=== PATIENT | male | born 1950 | race Caucasian/White ===

== ENCOUNTER 2021-08-01 11:15 | Inpatient (IN) | payer OTHER ==
[~2021-08-01] VITALS: Ht 165.1 cm; Wt 76.2 kg
[2021-08-01] MEDS ORDERED: COZAAR50 MG PO (17:18)
[2021-08-07] MEDS ORDERED: PERCOCET 5-3251 EACH PO (18:15)
[2021-08-07] MEDS ORDERED: ELIQUIS2.5 MG PO (18:15)
[2021-08-07] MEDS ORDERED: DUI500 PO (18:15)
[2021-08-08] MEDS ORDERED: PERCOCET 5-3251 EACH PO (07:24)
== END 2021-08-08 16:52 | disposition home or self-care (01) | DRG 470 ==
LOC: O/R 08-05 07:00 → SURH 08-05 07:00
PROVIDERS: ADMIT Orthopaedic Surgery; ATTEND Orthopaedic Surgery
PROC: 0SRC0J9 Replacement of Right Knee Joint with Synthetic Substitute, Cemented, Open Approach (ICD-10-PCS; principal; 2021-08-05 07:00)
DX: M17.11 Unilateral primary osteoarthritis, right knee (principal); D62 Acute posthemorrhagic anemia; M22.11 Recurrent subluxation of patella, right knee; I10 Essential (primary) hypertension; Z20.822 Contact with and (suspected) exposure to COVID-19

== ENCOUNTER 2021-08-21 20:08 | Emergency (ER) | payer OTHER ==
[~2021-08-21] VITALS: Ht 165.1 cm; Wt 69.4 kg
[~2021-08-21 20:08] MED LIST: COZAAR50 MG PO; DUI500 PO; ELIQUIS2.5 MG PO; PERCOCET 5-3251 EACH PO
[2021-08-21] MEDS ORDERED: LEVOFLOXACIN750 MG PO (20:33)
[2021-08-21] MEDS ORDERED: GABAPENTIN300 M2 PO (20:34)
[2021-08-21] MEDS ORDERED: SENNA LAXATIVE8.6 MG PO (20:34)
[2021-08-22] MEDS ORDERED: BACTRIM DS TAB1 EACH PO (07:42)
[2021-08-22] MEDS ORDERED: PERCOCET 5-3251 EACH PO (07:42)
[2021-08-22] MEDS ORDERED: LEVOFLOXACIN750 MG PO (07:42)
== END 2021-08-22 08:00 | disposition home or self-care (01) ==
LOC: ER 20:08
DX: L03.115 Cellulitis of right lower limb (principal); Z96.651 Presence of right artificial knee joint; M17.11 Unilateral primary osteoarthritis, right knee; I10 Essential (primary) hypertension

== ENCOUNTER 2024-11-24 08:13 | Inpatient (IN) | payer OTHER ==
[~2024-11-24] VITALS: Ht 165.1 cm; Wt 74.8 kg
[~2024-11-24 08:13] MED LIST changes: +BACTRIM DS TAB1 EACH PO; +GABAPENTIN300 M2 PO; +LEVOFLOXACIN750 MG PO; +SENNA LAXATIVE8.6 MG PO
[2024-11-24 08:49] LABS: BASO % 1.2 % (0.1-1.2); EOS # 0.19 (0.04-0.54); EOS % 3.3 % (0.7-7.0); LYMPH # 1.49 (1.18-3.74); LYMPH % 26.1 % (19.3-53.1); MEAN PLATELET VOLUME 8.60 fl (9.4-12.4); MONO # 0.50 (0.24-0.82); MONO % 8.8 % (4.7-12.5); NEUT # 3.43 (1.56-6.13); NEUT % 60.2 % (34.0-71.1); RED CELL DISTRIBUTION WIDTH 12.4 % (11.6-14.4)
[2024-11-24 08:53] LABS: URINE APPEARANCE Clear; URINE BILIRRUBIN Negative (NEGATIVE); URINE BLOOD Negative; URINE COLOR Yellow; URINE GLUCOSE Negative (NEGATIVE); URINE KETONE Negative (NEGATIVE); URINE LEUKOCYTE Negative; URINE NITRATE Negative; URINE PROTEIN Negative (NEGATIVE); URINE UROBILINOGEN 0.2 E.U./dl
[2024-11-24 08:58] LABS: URINE BACTERIA 0 uL (0.0-1933); URINE CAST 0.00 uL (0.0-1.40); URINE EPITHELIAL CELLS 0.3 uL (0.0-38.8); URINE RBC 1.6 uL (0.0-20.8); URINE WBC 0.6 uL (0.0-23.2)
[2024-11-24 09:07] LABS: INR 0.97
[2024-11-24 09:20] LABS: ALT/SGPT 34.0 U/L (12-78); AST/SGOT 19.0 U/L (15-37); BILIRUBIN TOTAL 0.43 mg/dL (0.3-1.2); BUN CREA RATIO 20.0 (7.0-25.0); CREATININE SERUM 0.79 mg/dL (0.70-1.30); GFR 96.69; GLOBULINA 3.4 G/DL (2.4-3.5); GLUCOSE FASTING 116.0 mg/dL (65-100); OSMOLALITY SERUM 283.0 MOSM/KG (275-295)
[2024-11-24 09:24] VITALS: BP 150/80
[2024-11-24 09:28] LABS: COVID-19 AG NEGATIVE (NEGATIVE)
[2024-11-24] MEDS ORDERED: ROSUVASTATIN CA10 MG (09:34)
[2024-11-24 11:13] LABS: RH POSITIVE
[2024-11-28] MEDS ORDERED: VANCOMYCIN HCL 1,000 MG VIAL IV ONE (07:30)
[2024-11-28] MEDS ORDERED: CEFAZOLIN SODIUM 1,000 MG VIAL IV ONE (07:30)
[2024-11-28] MEDS ORDERED: TRANEXAMIC ACID 100MG/1ML (1000MG) AMPUL IV ONE (07:30)
[2024-11-28] MEDS ORDERED: ISOPROPYL ALCOHOL 30 ML OUNCE TOP ONE (07:45)
[2024-11-28] MEDS ORDERED: BUPIVACAINE HCL/PF 0.25% 30ML VIAL InF ONE (07:45)
[2024-11-28] MEDS ORDERED: MORPHINE SULFATE 4 MG/ML VIAL IV ONE (07:45)
[2024-11-28] MEDS ORDERED: LIDOCAINE HCL 1%/EPINEPHRINE 20ML VIAL IJ ONE (07:45)
[2024-11-28] MEDS ORDERED: KETOROLAC TROMETHAMINE 60 MG VIAL IM ONE (07:45)
[2024-11-28] MEDS ORDERED: MORPHINE SULFATE 4 MG/ML CARTRIDGE IV PRN (08:45)
[2024-11-28] MEDS ORDERED: SODIUM CHLORIDE 0.45 % 1,000 ML IV SCH (08:45)
[2024-11-28] MEDS ORDERED: OxyCODONE HCL 5 MG TABLET (ROXICODONE) PO PRN (08:45)
[2024-11-28] MEDS ORDERED: ONDANSETRON HCL 2 MG/ML VIAL IV PRN (08:45)
[2024-11-28] MEDS ORDERED: CELECOXIB 200 MG CAPSULE PO SCH (09:00)
[2024-11-28] MEDS ORDERED: GABAPENTIN 300 MG CAPSULE PO SCH (09:00)
[2024-11-28] MEDS ORDERED: CEFAZOLIN SODIUM 1,000 MG VIAL IV SCH (09:00)
[2024-11-28] MEDS ORDERED: ACETAMINOPHEN 500 MG GEL..CAP PO SCH (12:00)
[2024-11-28 17:12] VITALS: BP 151/88; O2SAT 98
[2024-11-28] MEDS ORDERED: ENALAPRILAT DIHYDRATE 1.25 MG/ML VIAL IV PRN (21:45)
[2024-11-28 23:00] VITALS: BP 139/71; O2SAT 95
[2024-11-29 07:11] LABS: BASO % 0.4 % (0.1-1.2); EOS # 0.13 (0.04-0.54); EOS % 1.9 % (0.7-7.0); LYMPH # 1.44 (1.18-3.74); LYMPH % 20.7 % (19.3-53.1); MEAN PLATELET VOLUME 9.50 fl (9.4-12.4); MONO # 0.87 (0.24-0.82); NEUT # 4.45 (1.56-6.13); NEUT % 64.1 % (34.0-71.1); RED CELL DISTRIBUTION WIDTH 12.4 % (11.6-14.4)
[2024-11-29 08:02] LABS: MONO % 12.5 % (4.7-12.5)
[2024-11-29] MEDS ORDERED: SENNOSIDES 1 TAB TABLET PO SCH (09:00)
[2024-11-29] MEDS ORDERED: ROSUVASTATIN CALCIUM 10 MG TABLET PO SCH (09:00)
[2024-11-29] MEDS ORDERED: IRON FUM,PS/FOLIC ACID/VITC/B3 1 CAP CAPSULE PO SCH (09:00)
[2024-11-29] MEDS ORDERED: APIXABAN 2.5 MG TABLET PO SCH (09:00)
[2024-11-29] MEDS ORDERED: LOSARTAN POTASSIUM 50 MG TABLET PO SCH (09:00)
[2024-11-29] MEDS ORDERED: PERCOCET 5-3251 EACH PO (10:39)
[2024-11-29] MEDS ORDERED: ELIQUIS2.5 MG PO (10:39)
[2024-11-29] MEDS ORDERED: DUI500 PO (10:39)
[2024-11-29 18:15] VITALS: BP 140/86; O2SAT 99
== END 2024-11-29 19:11 | DRG 470 ==
LOC: O/R 11-28 05:08 → SURG 11-28 05:08
PROVIDERS: ADMIT Orthopaedic Surgery; ATTEND Orthopaedic Surgery
PROC: 0MNP0ZZ Release Left Knee Bursa and Ligament, Open Approach (ICD-10-PCS; 2024-11-28)
PROC: 0QUF0KZ Supplement Left Patella with Nonautologous Tissue Substitute, Open Approach (ICD-10-PCS; 2024-11-28)
PROC: 0QUF0JZ Supplement Left Patella with Synthetic Substitute, Open Approach (ICD-10-PCS; 2024-11-28)
PROC: 0SRD0JZ Replacement of Left Knee Joint with Synthetic Substitute, Open Approach (ICD-10-PCS; principal; 2024-11-28 08:00)
DX: M17.0 Bilateral primary osteoarthritis of knee (principal); D62 Acute posthemorrhagic anemia; M00.9 Pyogenic arthritis, unspecified; Z96.653 Presence of artificial knee joint, bilateral; M22.12 Recurrent subluxation of patella, left knee